=== PATIENT | male | born 1970 | race Caucasian/White ===

== ENCOUNTER 2016-04-16 12:12 | Outpatient (CLI) ==
[2015-10-18 08:32] VITALS: BMI 28.8
--- NOTE | 2016-04-16 13:08 | DI ---
Exam: Paranasal sinuses three-view History: Sinusitis FINDINGS / IMPRESSION: Paranasal sinuses are completely and symmetrically pneumatized. The orbits are intact. Bony cranium appears normal. Negative exam.
== END 2016-04-16 12:13 | disposition home or self-care (01) ==
LOC: RAD 12:12
PROVIDERS: ATTEND Nurse Practitioner Family
DX: J32.9 Chronic sinusitis, unspecified (principal); R09.81 Nasal congestion

== ENCOUNTER 2016-10-23 14:54 | Emergency (ER) ==
[2016-10-23 14:58] VITALS: BP 124/77; TEMP 97.9; BMI 27.9
--- NOTE | 2016-10-23 15:03 | ED.PDOC ---
General ED Provider: Dr. EMRE MAURICIO Chief Complaint: Tooth Problem Stated Complaint: dental pain Time Seen by Physician: 15:01 Mode of Arrival: Walk-In Information Source: Patient Exam Limitations: No limitations [facility] Nursing and Triage Documentation Reviewed and Agree: Yes (seen with thelma at all times ) EENT Complaint Exam - Dental/Oral Complaint/Exam Mechanism of Injury: No known trauma Symptoms Are: Still present Timing: Intermittent Initial Severity: Moderate Current Severity: Moderate Character: Reports: Aching Aggravating: Reports: Heat, Cold, Chewing Alleviating: Reports: Heat, Cold. Denies: OTC Meds Associated Signs and Symptoms: Denies: Swelling, Discharge, Fever, Foul odor, Foul taste in mouth Related History: Reports: Similar episode Dental/Oral Surgical History: Reports: None Tooth Findings: Present: Gross caries Cervical Lymphadenopathy Present: No Facial Swelling Present: No Bleeding Present: No Oropharynx Findings: Absent: Clots, Active bleeding Septal Hematoma: No Foreign Body Present: No Dysphagia Present: No Drooling Present: No Asymmetrical Tonsillar Swelling Present: No Uvula Midline: Yes Emilee-tonsillar Fluctuence: No Trismus Present: No Palatal Petechiae Present: No Scarlatinaform Rash Present: No Teeth Picture: 1 - decay 2 - decay Differential Diagnoses: Dental Caries Review of Systems - Review Of Systems Constitutional: Reports: No symptoms Eyes: Reports: No symptoms Ears, Nose, Mouth, Throat: Reports: No symptoms Respiratory: Reports: No symptoms Cardiac: Reports: No symptoms GI: Reports: No symptoms : Reports: No symptoms Musculoskeletal: Reports: No symptoms Skin: Reports: No symptoms Neurological: Reports: No symptoms Endocrine: Reports: No symptoms Hematologic/Lymphatic: Reports: No symptoms All Other Systems: Reviewed and Negative Past Medical History - Past Medical History Previously Healthy: Yes Endocrine: Reports: Hypothyroid, Dyslipidemia Cardiovascular: Reports: Hypertension Respiratory: Reports: Asthma Hematological: Reports: None Gastrointestinal: Reports: GERD Genitourinary: Reports: Kidney stones Neuro/Psych: Reports: None Musculoskeletal: Reports: Other Cancer: Reports: None Other Pertinent Past Medical History: 2 ABSCESSES AND HAD A DRAIN FOR A WEEK ON LOWER RIGHT JAW - Surgical History General Surgical History: Reports: Orthopedic (carpal tunnel), Unknown - Family History Family History: Reports: Unknown - Social History Smoking Status: Former smoker Hx Substance Use: No Alcohol Screening: Occasionally Physical Exam - Physical Exam Appearance: Well-appearing, No pain distress, Well-nourished Eyes: JOSE, EOMI, Conjunctiva clear ENT: Ears normal, Nose normal, Oropharynx normal Respiratory: Airway patent, Breath sounds clear, Breath sounds equal, Respirations nonlabored Cardiovascular: RRR, Pulses normal, No rub, No murmur GI/: Soft, Nontender, No masses, Bowel sounds normal, No Organomegaly Musculoskeletal: Normal strength, ROM intact, No edema, No calf tenderness Skin: Warm, Dry, Normal color Neurological: Sensation intact, Motor intact, Reflexes intact, Cranial nerves intact, Alert, Oriented Psychiatric: Affect appropriate, Mood appropriate Critical Care Note - Critical Care Note Total Time (mins): 0 Course - Course Vital Signs: Temp Pulse Resp BP Pulse Ox 10/23/16 14:54 97.9 F 117 H 16 124/77 98 Departure - Departure Time of Disposition: 15:02 Disposition: HOME SELF-CARE Discharge Problem: Toothache Instructions: Toothache (ED) Condition: Good Pt referred to PMD for follow-up: Yes Additional Instructions: Please fPlease call your Family Physician as soon as possible to schedule a follow-up appointment. Allergies/Adverse Reactions: Allergies No Known Allergies Allergy (Uncoded 10/23/16 14:58) Home Medications: Ambulatory Orders Cyclobenzaprine HCl [Flexeril] 10 mg PO TID 10/22/12 Lisinopril/Hydrochlorothiazide [Lisinopril-Hctz 10-12.5 Mg Tab] 1 each PO DAILY 11/25/13 Amlodipine Besylate [Norvasc] 5 mg PO DAILY 08/22/14 Sennosides [Senokot] 8.6 mg PO BID 08/22/14 Simvastatin [Zocor] 10 mg PO BEDTIME 08/22/14 Hydrocodone/Acetaminophen [Lortab 10-325 mg Tablet] 1 each PO QID PRN 10/18/15 Ipratropium/Albuterol Sulfate [Combivent Respimat Inhal Mcdaniel] 2 sprays IH BID PRN #1 aer.w.adap 10/18/15 Sulfamethoxazole/Trimethoprim [Bactrim Ds 800/160 mg] 1 tab PO Q12HR #14 tablet 10/18/15 Sennosides/Docusate Sodium [Emilee-Colace Tablet] 1 each PO PRN 10/31/15
== END 2016-10-23 15:08 | disposition home or self-care (01) ==
LOC: ED 14:54
DX: K08.89 Other specified disorders of teeth and supporting structures (principal); K02.7 Dental root caries
CPT/HCPCS: 99282

== ENCOUNTER 2016-11-07 12:32 | Outpatient (CLI) ==
--- NOTE | 2016-11-07 13:08 | US ---
EXAM: Ultrasound groin right. HISTORY: Right groin pain for 6 months. FINDINGS / IMPRESSION: Oh-scale ultrasound and color Doppler were performed in the region of inte rest described as the right groin. There were several oval shaped hypoechoic solid masses identified, all measuring less than 1 cm shor t axis. These are consistent with inguinal lymph nodes and have a benign characteristics. No disti nct regional abnormalities were identified sonographically. If concern is persistent, consider foll ow-up imaging in the region which could include enhanced CT.
== END 2016-11-07 12:33 | disposition home or self-care (01) ==
LOC: RAD 12:32
PROVIDERS: ATTEND Nurse Practitioner Family
DX: R10.31 Right lower quadrant pain (principal)
CPT/HCPCS: 76882

== ENCOUNTER 2018-04-19 06:07 | Emergency (ER) ==
[2018-04-19 06:11] VITALS: BP 131/89; TEMP 98; BMI 3905.5
[2018-04-19] MEDS ORDERED: MORPHINE 2 MG/ML SYRINGE IM STA (06:20)
[2018-04-19] MEDS ORDERED: PHENERGAN 25 MG/ML VIAL IM STA (06:21)
--- NOTE | 2018-04-19 06:43 | ED.PDOC ---
General ED Provider: Dr. INES CORTEZ-ER Chief Complaint: Shoulder Pain/Injury Stated Complaint: i was working on a jeep--i lifted the axle and now i cant move my shoulder without it hurting Time Seen by Physician: 06:10 Mode of Arrival: Walk-In Information Source: Patient Exam Limitations: No limitations Primary Care Provider: JESUS HERNANDEZ Nursing and Triage Documentation Reviewed and Agree: Yes Does patient meet sepsis criteria?: No System Inflammatory Response Syndrome: Not Applicable Sepsis Protocol: For patient's 13 years and over: Temp is 96.8 and below OR 101 and greater Pulse >90 BPM Resp >20/minute Acutely Altered Mental Status Are patient's symptoms suggestive of a new infection, such as: -Pneumonia -Skin, Soft Tissue -Endocarditis -UTI -Bone, Joint Infection -Implantable Device -Acute Abdominal Infection -Wound Infection -Meningitis -Blood Stream Catheter Infection -Unknown Musculoskeletal Complaint Exam - Shoulder Pain Complaint/Exam Mechanism of Injury: Reports: No known trauma Onset/Duration: 24 hrs Symptoms Are: Still present Timing: Constant Initial Severity: Mild Current Severity: Moderate Location: Reports: Discrete Character: Reports: Dull, Aching, Spasmodic, Stiffness Alleviating: Reports: None Aggravating: Reports: Movement, Lifting, Flexion, Extension, Internal rotation, External rotation, Abduction Associated Signs and Symptoms: Denies: Swelling, Redness, Bruising, Fever, Weakness, Numbness, Tingling Non-Orthopedic Risk Factors: Reports: None Tenderness: Present: Proximal humerus, Rotator cuff muscles Limited Range of Motion: Present: Abduction, Adduction, Flexion, Extension, Internal rotation, Rotator cuff muscles Differential Diagnoses: Rotator Cuff Injury, Sprain, Strain, Tendonitis Review of Systems - Review Of Systems Constitutional: Reports: No symptoms Eyes: Reports: No symptoms Ears, Nose, Mouth, Throat: Reports: No symptoms Respiratory: Reports: No symptoms Cardiac: Reports: No symptoms GI: Reports: No symptoms : Reports: No symptoms Musculoskeletal: Reports: Joint pain, Muscle pain Skin: Reports: No symptoms Neurological: Reports: No symptoms Endocrine: Reports: No symptoms Hematologic/Lymphatic: Reports: No symptoms All Other Systems: Reviewed and Negative Past Medical History - Past Medical History Previously Healthy: Yes Endocrine: Reports: Hypothyroid, Dyslipidemia Cardiovascular: Reports: Hypertension Respiratory: Reports: Asthma Hematological: Reports: None Gastrointestinal: Reports: GERD Genitourinary: Reports: Kidney stones Neuro/Psych: Reports: None Musculoskeletal: Reports: Other Cancer: Reports: None Other Pertinent Past Medical History: 2 ABSCESSES AND HAD A DRAIN FOR A WEEK ON LOWER RIGHT JAW - Surgical History General Surgical History: Reports: Orthopedic (carpal tunnel), Unknown - Family History Family History: Reports: Unknown - Social History Smoking Status: Former smoker Hx Substance Use: No Alcohol Screening: None - Immunizations Tetanus Shot up to Date: Yes Physical Exam - Physical Exam Appearance: Well-appearing, No pain distress, Well-nourished Pain Distress: Moderate Eyes: JOSE, EOMI, Conjunctiva clear ENT: Ears normal, Nose normal, Oropharynx normal Neck: Supple Respiratory: Airway patent, Breath sounds clear, Breath sounds equal, Respirations nonlabored Cardiovascular: RRR, Pulses normal, No rub, No murmur GI/: Soft, Nontender, No masses, Bowel sounds normal, No Organomegaly Musculoskeletal: Limited ROM Skin: Warm, Dry, Normal color Neurological: Sensation intact, Motor intact, Reflexes intact, Cranial nerves intact, Alert, Oriented Psychiatric: Affect appropriate, Mood appropriate Interpretation - Radiology Interpretation Radiology Interpretation By: Radiologist Radiology Results: Negative Exam Interpreted: CT Scan Re-Evaluation - Re-Evaluation Time of Re-Evaluation: 06:55 Status: Improved Vital Signs Stable: Yes Pain Level: 1 Appearance: NAD Lungs: Clear Skin: Warm and Dry Neuro: Alert and Oriented X3 CV: RRR Critical Care Note - Critical Care Note Total Time (mins): 0 Course - Course Orders, Labs, Meds: Orders Category Date Time Status Splint [ED SPLINT APPLICATION] .ONCE EMERGENCY 04/19/18 06:52 Active Hydromorphone HCl [Dilaudid 1 mg/ml Syringe] MEDS 04/19/18 06:53 Stat 1 mg IM ONCE STA Morphine Sulfate [Morphine 2 mg/ml Syringe] MEDS 04/19/18 06:20 Discontinued 4 mg IM ONCE STA Promethazine HCl [Phenergan 25 mg/ml Vial] MEDS 04/19/18 06:21 Discontinued 25 mg IM ONCE STA CT SHOULDER RIGHT W/O CONTRAST Stat RADS 04/19/18 06:21 Completed Medications Generic Name Dose Route Start Last Admin Trade Name Freq PRN Reason Stop Dose Admin Hydromorphone HCl 1 mg 04/19/18 06:53 Dilaudid 1 Mg/Ml Syringe IM 04/19/18 06:54 ONCE STA Discontinued Medications Generic Name Dose Route Start Last Admin Trade Name Steven PRN Reason Stop Dose Admin Morphine Sulfate 4 mg 04/19/18 06:20 04/19/18 06:33 Morphine 2 Mg/Ml Syringe IM 04/19/18 06:21 4 mg ONCE STA Administration Promethazine HCl 25 mg 04/19/18 06:21 04/19/18 06:32 Phenergan 25 Mg/Ml Vial IM 04/19/18 06:22 25 mg ONCE STA Administration Vital Signs: Temp Pulse Resp BP Pulse Ox 04/19/18 06:08 98 F 91 H 20 131/89 99 Departure - Departure Time of Disposition: 06:55 Disposition: HOME SELF-CARE Discharge Problem: Injury of shoulder region Instructions: Rotator Cuff Injury (ED) Condition: Good Pt referred to PMD for follow-up: Yes IPMP verified?: No Additional Instructions: stay in sling---norco 7.5mg q 4hrs prn pain #12---see your pcp---consider mri of the shoulder vs ortho referral Allergies/Adverse Reactions: Allergies No Known Allergies Allergy (Uncoded 04/19/18 06:10) Home Medications: Ambulatory Orders Cyclobenzaprine HCl [Flexeril] 10 mg PO TID 10/22/12 Lisinopril/Hydrochlorothiazide [Lisinopril-Hctz 10-12.5 Mg Tab] 1 each PO DAILY 11/25/13 Sennosides [Senokot] 8.6 mg PO BID 08/22/14 Simvastatin [Zocor] 10 mg PO BEDTIME 08/22/14 Sennosides/Docusate Sodium [Emilee-Colace Tablet] 1 each PO PRN PRN 10/31/15 Amoxicillin 500 mg PO Q8HR #21 tablet 10/23/16 Hydrocodone/Acetaminophen [[place]ouck 10-325 Tablet] 1 each PO Q8HR #12 tablet Disposition Discussed With: Patient
--- NOTE | 2018-04-19 06:51 | CT ---
EXAM: CT right shoulder without intravenous contrast 04/19/2018. Sagittal and coronal reformatted i mages obtained HISTORY: Injury COMPARISON: 01/20/2015 FINDINGS: The glenohumeral and acromioclavicular joints align normally. There is no evidence of acu te fracture. There is no evidence of dislocation. The adjacent visualized ribs and scapula also blake ear intact. No gross soft tissue injury within the limitation of a noncontrast CT. The current study is limited in evaluation of internal derangement. MRI may be of benefit in further characterization. There is chronic osteoarthritic degenerative change. Joint space narrowing of the glenohumeral joint . Prominent acromioclavicular osteophyte formation. There is both superior and inferior osteophyte formation at the level of the acromioclavicular joint. IMPRESSION: 1. No acute fracture or dislocation. 2. Chronic osteoarthritic degenerative change. 3. Limited characterization of soft tissue injury/internal derangement due to noncontrast CT techniq ue. MRI may be of benefit in further characterization.
[2018-04-19] MEDS ORDERED: DILAUDID 1 MG/ML SYRINGE IM STA (06:53)
== END 2018-04-19 07:22 | disposition home or self-care (01) ==
LOC: ED 06:07
DX: S49.91XA Unspecified injury of right shoulder and upper arm, initial encounter (principal); X50.9XXA Other and unspecified overexertion or strenuous movements or postures, initial encounter
CPT/HCPCS: 96372; 99283

== ENCOUNTER 2018-11-05 20:46 | Observation (INO) ==
[2018-11-05] MEDS ORDERED: TORADOL IVP STA (21:34)
--- NOTE | 2018-11-05 23:51 | CT ---
Exam: CT angiography of the chest History: Right pleuritic chest pain Technique: [address] of the chest utilizing CT angiography protocol. Multiplanar and max imum intensity projection reformations were performed. FINDINGS: Technically adequate for evaluation of pulmonary arteries and aorta. There are no pulmona ry artery filling defects. The lung windows show no pulmonary parenchymal abnormality. The aorta is normal. Atherosclerotic calcification of the coronary arteries. No pathologic lymph node enlargeme nt or abundance of mediastinum. No acute findings of the chest wall soft tissues or bony thorax. No acute findings of the upper abdomen. Impression: 1. No evidence of pulmonary artery thrombus 2. No acute findings of the chest
--- NOTE | 2018-11-06 00:20 | ED.PDOC ---
General ED Provider: Dr. INES CORTEZ-ER Chief Complaint: Chest Pain Stated Complaint: michael been hurting on the right side of my chest for 2 weeks-- its worse with any exertion--he does have risk factors for cad Time Seen by Physician: 20:50 Mode of Arrival: Walk-In Information Source: Patient Exam Limitations: No limitations Primary Care Provider: AICHA [facility] Nursing and Triage Documentation Reviewed and Agree: Yes Does patient meet sepsis criteria?: No System Inflammatory Response Syndrome: Not Applicable Sepsis Protocol: For patient's 13 years and over: Temp is 96.8 and below OR 101 and greater Pulse >90 BPM Resp >20/minute Acutely Altered Mental Status Are patient's symptoms suggestive of a new infection, such as: -Pneumonia -Skin, Soft Tissue -Endocarditis -UTI -Bone, Joint Infection -Implantable Device -Acute Abdominal Infection -Wound Infection -Meningitis -Blood Stream Catheter Infection -Unknown Cardiovascular Complaint Exam - Chest Pain Complaint/Exam Onset: Gradual Duration: 2 weeks Symptoms Are: Still present Initial Severity: Mild Current Severity: Mild Location: Reports: Diffuse Character: Reports: Dull, Aching, Pressure Aggravating: Reports: Exertion, Movement, Deep breaths AMI/ACS Risk Factors: Reports: Hypertension, Smoking TAD Risk Factors: Reports: Hypertension Pulmonary Embolism Risk Factors: Reports: None Prior Care for this Complaint: No Recent Stress Test: No Recent Echo/LV Function: No JVD Present: No Subcutaneous Emphysema Present: No Diminshed Breath Sounds: No Reproducible Chest Wall Pain: No Bilateral Pulses Present: Yes Unequal Pulses Noted: No If Risk Factors for PE Consider: Chest CT with contrast If Risk Factors for TAD Consider: Chest CT with contrast Tapeman Consulted: No Differential Diagnoses: ACS, Stable Angina, Chest Wall Pain, Pulmonary Embolism Quality Indicators For Acute NH or Cardiac Chest Pain: EKG in 10min. Quality Indicator For Non-Traumatic Chest Pain/Syncope: EKG Performed Review of Systems - Review Of Systems Constitutional: Reports: No symptoms Eyes: Reports: No symptoms Ears, Nose, Mouth, Throat: Reports: No symptoms Respiratory: Reports: No symptoms Cardiac: Reports: Chest pain GI: Reports: No symptoms : Reports: No symptoms Musculoskeletal: Reports: No symptoms Skin: Reports: No symptoms Neurological: Reports: No symptoms Endocrine: Reports: No symptoms Hematologic/Lymphatic: Reports: No symptoms All Other Systems: Reviewed and Negative Past Medical History - Past Medical History Previously Healthy: Yes Endocrine: Reports: Hypothyroid, Dyslipidemia Cardiovascular: Reports: Hypertension Respiratory: Reports: Asthma Hematological: Reports: None Gastrointestinal: Reports: GERD Genitourinary: Reports: Kidney stones Neuro/Psych: Reports: None Musculoskeletal: Reports: Other Cancer: Reports: None Other Pertinent Past Medical History: 2 ABSCESSES AND HAD A DRAIN FOR A WEEK ON LOWER RIGHT JAW - Surgical History General Surgical History: Reports: Orthopedic (carpal tunnel), Unknown - Family History Family History: Reports: Unknown - Social History Smoking Status: Former smoker Hx Substance Use: No (medical marijuana) Alcohol Screening: Occasionally - Immunizations Tetanus Shot up to Date: No Physical Exam - Physical Exam Appearance: Well-appearing, No pain distress, Well-nourished Pain Distress: Mild Eyes: JOSE, EOMI, Conjunctiva clear ENT: Ears normal, Nose normal, Oropharynx normal Neck: Supple Respiratory: Airway patent, Breath sounds clear, Breath sounds equal, Respirations nonlabored Cardiovascular: RRR, Pulses normal, No rub, No murmur GI/: Soft, Nontender, No masses, Bowel sounds normal, No Organomegaly Musculoskeletal: Normal strength, ROM intact, No edema, No calf tenderness Skin: Warm, Dry, Normal color Neurological: Sensation intact, Motor intact, Reflexes intact, Cranial nerves intact, Alert, Oriented Psychiatric: Affect appropriate, Mood appropriate Interpretation - Radiology Interpretation Radiology Interpretation By: Radiologist Radiology Results: Negative Exam Interpreted: CT Scan - EKG Interpretation Time of EKG #1: 00:22 Rate: Normal Rhythm: Sinus Ectopy: None [place]: NL ST Segment: Normal Interpretation: nsr Physician Notification - Case Discussed Physician Notified: MT doctor gave permission for admission Time of Notification: 01:01 Critical Care Note - Critical Care Note Total Time (mins): 30 Course - Course Hematology/Chemistry: 11/05/18 21:15 11/05/18 21:15 Orders, Labs, Meds: Lab Review 11/05/18 11/05/18 21:15 21:15 WBC 7.08 RBC 4.31 L Hgb 13.3 L Hct 39.1 L MCV 90.7 MCH 30.9 MCHC 34.0 RDW Coeff of Mir 13.3 Plt Count 197 Immature Gran % (Auto) 0.3 Neut % (Auto) 62.6 Lymph % (Auto) 24.7 [place] % (Auto) 8.2 Eos % (Auto) 3.8 Baso % (Auto) 0.4 Immature Gran # (Auto) 0.0 Neut # (Auto) 4.4 Lymph # (Auto) 1.8 [place] # (Auto) 0.6 Eos # (Auto) 0.3 Baso # (Auto) 0.0 ESR 12 Sodium 142.0 Potassium 3.31 L Chloride 108.5 H Carbon Dioxide 24.5 Anion Gap 12.31 BUN 11.1 Creatinine 1.04 Estimated GFR (MDRD) 76.00 BUN/Creatinine Ratio 10.67 Glucose 96.4 Calcium 9.73 Total Bilirubin 0.40 AST 27.0 ALT 19.8 Alkaline Phosphatase 64.2 Total Creatine Kinase 123.3 CK-MB (CK-2) 1.160 CK-MB (CK-2) % 0.9400 Troponin I < 0.012 Total Protein 7.53 Albumin 4.37 Globulin 3.16 Albumin/Globulin Ratio 1.38 Amylase 64.4 Lipase 85.0 Orders Category Date Time Status EKG-(ED ONLY) Stat CARDIO 11/05/18 21:02 Completed NPO REMINDER: IMAGING ONCE CARE 11/05/18 21:09 Completed ED PALLIATIVE CARE PHYSICIAN APPLIED .ONCE EMERGENCY 11/05/18 21:08 Active ED IV/MEDIPORT/POWERPORT .ONCE EMERGENCY 11/05/18 21:08 Active AMYLASE Stat LAB 11/05/18 21:15 Completed CBC W/ AUTO DIFF Stat LAB 11/05/18 21:15 Completed COMPREHENSIVE METABOLIC PANEL Stat LAB 11/05/18 21:15 Completed CREATINE KINASE Stat LAB 11/05/18 21:15 Completed ESR Stat LAB 11/05/18 21:15 Completed LIPASE Stat LAB 11/05/18 21:15 Completed TROPONIN I Stat LAB 11/05/18 21:15 Completed 0.9 % Sodium Chloride [Saline Flush] MEDS 11/05/18 21:08 Active 1 syr IVF PRN PRN Ketorolac Tromethamine [Toradol] MEDS 11/05/18 21:34 Discontinued 30 mg IVP ONCE STA CT CHEST PE PROTOCOL Stat RADS 11/05/18 21:09 Completed Medications Generic Name Dose Route Start Last Admin Trade Name Freq PRN Reason Stop Dose Admin Sodium Chloride 1 syr 11/05/18 21:08 11/05/18 21:39 Saline Flush IVF 1 syr PRN PRN Administration To flush IV Discontinued Medications Generic Name Dose Route Start Last Admin Trade Name Freq PRN Reason Stop Dose Admin Ketorolac Tromethamine 30 mg 11/05/18 21:34 11/05/18 21:39 Toradol IVP 11/05/18 21:35 30 mg ONCE STA Administration Vital Signs: Temp Pulse Resp BP Pulse Ox 11/05/18 23:35 75 18 131/81 99 11/05/18 22:50 71 20 118/74 98 11/05/18 20:47 97.6 F 90 20 147/90 H 100 MAYRA Risk Score MAYRA Risk Score: Risk Score Odds of by 30D 0 0.1 (0.1-0.2) 1 0.3 (0.2-0.3) 2 0.4 (0.3-0.5) 3 0.7 (0.6-0.9) 4 1.2 (1.0-1.5) 5 2.2 (1.9-2.6) 6 3.0 (2.5-3.6) 7 4.8 (3.8-6.1) Departure - Departure Time of Disposition: 00:23 Disposition: PLACED OBSERVATION Discharge Problem: Chest pain Instructions: Chest Pain (ED) Condition: Good Pt referred to PMD for follow-up: Yes IPMP verified?: No Allergies/Adverse Reactions: Allergies No Known Allergies Allergy (Uncoded 11/05/18 20:55) Home Medications: Ambulatory Orders Cyclobenzaprine HCl [Flexeril] 10 mg PO TID 10/22/12 Lisinopril/Hydrochlorothiazide [Lisinopril-Hctz 10-12.5 Mg Tab] 1 each PO DAILY 11/25/13 Simvastatin [Zocor] 10 mg PO BEDTIME 08/22/14 Sennosides/Docusate Sodium [Emilee-Colace Tablet] 1 each PO PRN PRN 10/31/15 Allopurinol 200 mg PO BEDTIME 11/05/18 Etodolac 300 mg PO BID 11/05/18 Transfer Form Completed: Yes Disposition Discussed With: Patient
[2018-11-06] MEDS ORDERED: TYLENOL PO PRN (01:03)
[2018-11-06] MEDS ORDERED: NORCO 5-325 PO PRN (01:04)
[2018-11-06 01:54] VITALS: BMI 28.4
[2018-11-06] MEDS ORDERED: DECADRON 4 MG/ML SDV IVP STA ×2 (08:15)
[2018-11-06] MEDS ORDERED: TORADOL IVP STA (08:15)
[2018-11-06] MEDS ORDERED: FLEXERIL PO SCH (09:00)
[2018-11-06] MEDS ORDERED: LOVENOX SUBCUT SCH (09:00)
[2018-11-06] MEDS ORDERED: ETODOLAC 300 MG PO SCH (09:00)
--- NOTE | 2018-11-06 11:12 | PCM.CONS ---
CONSULTING PROVIDER: Dr. HOLDEN DE LA GARZA ATTENDING PROVIDER: Dr. INES CORTEZ DATE OF SERVICE: 11/06/18 SUBJECTIVE: This 48 year old WHITE/ M was hospitalized 11/06/18. The patient is seen in consultation for right-sided pleuriitc type pain. The patient doesn't have any exertional type chest discomfort. No symptoms of CHF. The patient's mother had a pacemaker. The patient is a nonsmoker. He is on medical marijuana. The patient has been on a statin for 3 years and is followed by the [facility]. REVIEW OF SYSTEMS: CONSTITUTIONAL: No night sweats. No fatigue, malaise, lethargy. No fever or chills. HEENT: Eyes: No visual changes. No eye pain. No eye discharge. ENT: No runny nose. No epistaxis. No sinus pain. No odynophagia. No congestion. RESPIRATORY: No cough, no congestion. No hemoptysis. No shortness of breath. CARDIOVASCULAR: Positive for chest pain. No angina symptoms. No CHF symptoms. No palpitations. No orthopnea. GASTROINTESTINAL: No abdominal pain. No nausea or vomiting. No diarrhea or constipation. No hematemesis. No hematochezia. GENITOURINARY: No urgency. No frequency. No dysuria. No hematuria. No obstructive symptoms. No discharge. No pain. No significant abnormal bleeding. MUSCULOSKELETAL: No musculoskeletal pain; no joint swelling. NEUROLOGICAL: Awake, alert, oriented to time, place and person. No headache. No neck pain. No syncope. No seizures. No dizziness. PSYCHIATRIC: Not anxious. No depression. No suicidal thoughts. No homicidal thoughts. SKIN: No rash. No lesions. No wounds. ENDOCRINE: No unexplained weight loss. No weight gain. HEMATOLOGIC/LYMPHATIC: No anemia. No purpura. No petechiae. No prolonged or excessive bleeding. No palpable lymph nodes. PHYSICAL EXAMINATION: GENERAL: The patient is awake, alert and oriented, lying/sitting in bed in no distress. VITAL SIGNS: Temperature 97.8 F, Pulse 64, Respiratory Rate 18, BP 112/60, Pulse Ox 99% HEENT: Head normocephalic, atraumatic. Eyes: Extraocular muscles are intact. Pupils are equal, round and reactive to light and accommodation. Ears: No lesions. Nose appeared normal. Throat: No exudate or erythema. NECK: Supple. No JVD, no carotid bruit. No lymphadenopathy or thyromegaly. LUNGS: Clear to auscultation. Percussion note normal. Chest symmetrical. HEART: S1, S2, no S3. No murmurs. No cyanosis or clubbing. No ascites. Pulses: Dorsalis pedis and posterior tibial pulses +2 both sides. ABDOMEN: Soft. Non-tender. Bowel sounds active. No CVA tenderness. No mass felt. EXTREMITIES: No edema. Full range of motion of all extremities, equal. NEUROLOGIC: No focal deficit. Cranial nerves II through XII are grossly intact. No headache, no double vision or headache. SKIN: Warm and dry. Intact. Turgor-normal. LYMPHATIC: No palpable lymph nodes/no lymphedema. MUSCULOSKELETAL: Normal joints with no swelling. Muscle tone is normal. LAB REVIEW: 11/05/18 21:15 11/05/18 21:15 11/06/18 07:15: Total Creatine Kinase 97.1, Troponin I < 0.012 11/05/18 21:15: Sodium 142.0, Potassium 3.31 L, Chloride 108.5 H, Carbon Dioxide 24.5, Anion Gap 12.31, BUN 11.1, Creatinine 1.04, Estimated GFR (MDRD) 76.00, BUN/Creatinine Ratio 10.67, Glucose 96.4, Calcium 9.73, Total Bilirubin 0.40, AST 27.0, ALT 19.8, Alkaline Phosphatase 64.2, Total Creatine Kinase 123.3 , CK-MB (CK-2) 1.160, CK-MB (CK-2) % 0.9400, Troponin I < 0.012, Total Protein 7.53, Albumin 4.37, Globulin 3.16, Albumin/Globulin Ratio 1.38, Amylase 64.4, Lipase 85.0 11/05/18 21:15: WBC 7.08, RBC 4.31 L, Hgb 13.3 L, Hct 39.1 L, MCV 90.7, MCH 30.9 , MCHC 34.0, RDW Coeff of Mir 13.3, Plt Count 197, Immature Gran % (Auto) 0.3, Neut % (Auto) 62.6, Lymph % (Auto) 24.7, [place] % (Auto) 8.2, Eos % (Auto) 3.8, Baso % (Auto) 0.4, Immature Gran # (Auto) 0.0, Neut # (Auto) 4.4, Lymph # (Auto ) 1.8, [place] # (Auto) 0.6, Eos # (Auto) 0.3, Baso # (Auto) 0.0, ESR 12 ASSESSMENT: 1. Chest pain seems to be pleuritic in type, noncardiac. BMI 28. 2. History of dyslipidemia. 3. Family history questionable for heart disease. RECOMMENDATIONS/PLAN: 1. Echocardiogram to evaluate LV function. 2. Stress echo. 3. Lipid profile. 4. A1C. 5. TSH. 6. Toradol 30 mg IV. Thanks for referral, will follow. Plan and coordination of the patient's care discussed in the presence of Cto and Nurse. CONDITION: Stable. SCRIBED BY: NABIL BEARD [employer] Manager scribed while in presence of service performed by Dr. HOLDEN DE LA GARZA on 11/06/18 ([id number])
--- NOTE | 2018-11-06 12:13 | STRESSECHO ---
Date of Test: 11/06/18 Ordering Physician: DR. INES CORTEZ Occupation: DISABLED Reason for Exam: CHEST PAIN, SOB, HTN Smoking History: MEDICAL MARIJUANA/ QUIT CIGARETTES '90 Height: 72" Weight: 209 LBS Current Medications: ZOCOR, LISINOPRIL, FLEXERIL, ALLOPURINOL, ETODOLAC Resting EKG: SINUS RHYTHM/NO ACUTE CHANGES--ISOLATED PVC'S Target Heart Rate: 144/170 S-T SEGMENT STAGE MPH/GRADE HEART RATE BPM BLOOD PRESSURE MMHG RHYTHM +/- ELEVATION DEPRESSION SYMPTOMS AT REST 68 BPM 148/98 MMHG SR X NONE 1 1.7/10% 2 2.5/12% 3 3.4/14% 4 4.2/16% 5 5.0/18% Immediately After 115 BPM 148/88 MMHG SR X BACK PAIN RT SCIATICA Minutes Post Exercise 1:00 90 BPM SR X NO BACK PAIN Minutes Post Exercise 5:00 70 BPM 146/80 MMHG SR X NONE DURATION OF EXERCISE: 2:00 MAXIMUM HEART RATE REACHED: 115 BPM REASON FOR TERMINATION: BACK PAIN (RT) SCIATICA 96% OXYGEN SATURATION WITH EXERCISE METS 4.8 INTERPRETATION: 1. NO EVIDENCE OF ISCHEMIA BY ST-T WAVE CHANGES FROM RESTING HEART RATE 68 BPM TO 115 BPM WITH EXERCISE 2. NO CHEST PAIN OR DISCOMFORT 3. POST EXERCISE VENTRICULAR TRIGEMINY FOR COUPLE OF MINUTES 4. BLOOD PRESSURE RESPONSE: ADEQUATE NORMAL LEFT VENTRICULAR CONTRACTILITY--RESTING AND POST EXERCISE MTDD
[2018-11-06 15:35] VITALS: BP 135/85; TEMP 99
[2018-11-06] MEDS ORDERED: SIMVASTATIN 10 MG PO SCH (21:00)
[2018-11-06] MEDS ORDERED: ZYLOPRIM PO SCH (21:00)
--- NOTE | 2018-11-07 10:40 | ECHO2D ---
Date of Exam: 11/06/18 Ordering Physician: DR. INES CORTEZ--HOSPITALIST Room #: 120 Reason for Echo: CHEST PAIN, SOB, HTN M-Mode Normal Adult Results LV Dimensions Normal Adult Results AoV Opening excursions >1.6 >1.6 LVEDD-base- 3.5-5.8 4.9 Ao root dimensions 2.0-3.7 3.8 LVESD-base- 3.1-4.6 L. Atrium dimensions 1.9-3.8 4.0 Post. Wall thickness 0.8-1.1 1.2 IV septum (thickness) 0.7-1.2 1.3 Post. Wall excursion 0.72-1.3 NORMAL Septal motion NORMAL Systolic motion R. Ventricular cavity 1.5-2.0 NORMAL LVEF 60% 59% Paradoxical septal wall motion NORMAL 2-D : 2-D M Mode Echocardiogram was performed using apical four chamber and left parasternal long and short axis views. Mitral, tricuspid and aortic valves appear to be normal. Contractility of the left ventricle seems to be normal, so is the cavity size. Left atrial cavity size and aortic root appear to be normal. There is no pericardial effusion. There is no thrombus noted in the left ventricular or left aortic cavity. No mitral valve prolapse noted. M-MODE: MV: NORMAL AV: NORMAL TV: NORMAL PV: CHAMBER SIZE: BORDERLINE LEFT ATRIAL CAVITY WALL MOTION: NORMAL PERICARDIUM: NORMAL INTERPRETATION: 1. LEFT VENTRICULAR HYPERTROPHY WITH BORDERLINE LEFT ATRIAL CAVITY ENLARGEMENT 2. NORMAL LEFT VENTRICULAR CONTRACTILITY 3. NORMAL VALVES MTDD
--- NOTE | 2018-11-07 10:45 | ECHOSTRESS ---
Date of Exam: 11/06/18 Ordering Physician: DR. INES CORTEZ--HOSPITALIST Reason for Echo: CHEST PAIN, SOB, HYPERTENSION, STRESS TEST--NO ISCHEMIA M-Mode Normal Adult Results LV Dimensions Normal Adult Results AoV Opening excursions >1.6 LVEDD-base- 3.5-5.8 Ao root dimensions 2.0-3.7 LVESD-base- 3.1-4.6 L. Atrium dimensions 1.9-3.8 Post. Wall thickness 0.8-1.1 IV septum (thickness) 0.7-1.2 Post. Wall excursion 0.72-1.3 Septal motion Systolic motion R. Ventricular cavity 1.5-2.0 LVEF 60% Paradoxical septal wall motion 2-D: NORMAL LEFT VENTRICULAR CONTRACTILITY--RESTING AND POST EXERCISE M-MODE: MV: AV: TV: PV: CHAMBER SIZE: WALL MOTION: NORMAL LEFT VENTRICULAR CONTRACTILITY--RESTING AND POST EXERCISE PERICARDIUM: INTERPRETATION: 1. NORMAL LEFT VENTRICULAR CONTRACTILITY--RESTING AND POST EXERCISE MTDD
--- NOTE | 2018-11-11 09:47 | CONS ---
DATE OF SERVICE: 11/06/18 REASON FOR CONSULTATION: Chest pain SUBJECTIVE: 48 year old white male was hospitalized with chest pain which was right sides more like a pleuritic type of pain increased with inspiration. The patient was given Toradol and Decadron. Within an hour the patient's pain has been relieved. The patient has been constant for a couple of days. So far the patient 's EKG and cardiac markers are negative. REVIEW OF SYSTEMS: CONSTITUTIONAL: No night sweats. No fatigue, malaise, lethargy. No fever or chills. HEENT: Eyes: No visual changes. No eye pain. No eye discharge. ENT: No runny nose. No epistaxis. No sinus pain. No sore throat. No odynophagia. No ear pain. No congestion. RESPIRATORY: No cough, no congestion. No hemoptysis. CARDIOVASCULAR: No angina symptoms. No CHF symptoms. Pleuritic type of chest pain. chest pain increased with exertion. No palpitations. No shortness of breath. GASTROINTESTINAL: No abdominal pain. No nausea or vomiting. No diarrhea or constipation. No hematemesis. No hematochezia. GENITOURINARY: No urgency. No frequency. No dysuria. No hematuria. No obstructive symptoms. No discharge. No pain. No significant abnormal bleeding. MUSCULOSKELETAL: No musculoskeletal pain. No joint swelling. No arthritis. NEUROLOGICAL: No headache. No neck pain. No syncope. No seizures. No dizziness. PSYCHIATRIC: Not anxious. No depression. No suicidal thoughts. No homicidal thoughts. SKIN: No rash. No lesions. No wounds. ENDOCRINE: No unexplained weight loss. No weight gain. HEMATOLOGIC/LYMPHATIC: No anemia. No purpura. No petechiae. No prolonged or excessive bleeding. No palpable lymph nodes. SOCIAL HISTORY: The patient is . Former smoker with occasional alcohol use. MEDICATIONS: Medical marijuana Emilee-Colace Zocor Lisinopril/HCTZ Etodolac Flexeril Allopurinol PAST MEDICAL/SURGICAL HISTORY/ALLERGIES: Hypothyroid Dyslipidemia Hypertension Asthma GERD Kidney stone Carpal Terminal 2 abscess with drain lower right jaw Back surgery, 2018 (reinaldo, spacers and screws) Chronic back pain Pacemaker. PHYSICAL EXAMINATION: VITAL SIGNS: Temperature 97.8. pulse 64 per minute, respiratory rate 18, blood pressure 112/60 and pulse ox 99% HEENT: Head normocephalic, atraumatic. Eyes: Extraocular muscles are intact. Pupils are equal, round and reactive to light and accommodation. Ears: No lesions. Nose appeared normal. Throat: No exudate or erythema. NECK: Supple. No JVP, no carotid bruit. No lymphadenopathy or thyromegaly. LUNGS: Decreased breath sounds but clear to auscultation. Percussion note normal. Chest symmetrical. HEART: S1, S2, no S3. No murmurs. No cyanosis or clubbing. No ascites. Pulses: Dorsalis pedis and posterior tibial pulses +2 bilaterally. ABDOMEN: Soft. Nontender. Bowel sounds active. No CVA tenderness. No mass felt. EXTREMITIES: No edema. Full range of motion of all extremities, equal. NEUROLOGIC: No focal deficit. Cranial nerves II through XII are grossly intact. No headache, no double vision or headache. SKIN: Not dry. Intact. Turgor - normal. LYMPHATIC: No palpable lymph nodes/no lymphedema. MUSCULOSKELETAL: Normal joints with no swelling. Muscle tone is normal. LABS: Hgb 13, hct 39, WBC 7,000 normal differential. The patient's chest pain seems to be noncardiac. The patient underwent echocardiogram which showed borderline LVH. normal LV contract, normal valvular structure, Borderline enlargement of the LA cavity. Stress echo was not conclusive but the patient did not have any ST-T wave change with heart rate of 68 to 115 per minute. After the stress test was terminated at 2 minutes on Yoshi protocol with METS of 0.8 considering the performance on stress test, no chest pain, no ST-T wave change along with atypical chest pain with pleurisy. Negative cardiac markers and EKG. CTA chest- no evidence of pulmonary artery thrombus. No acute findings. Amylase within normal limits (64). Lipase within normal limits (85). EKG normal sinus rhythm. CPK#1 123, #2 97. Troponin <0.012 x2. MB 1.160. MB%0.9400. CONDITION: Stable. ASSESSMENT: 1. Chest pain, very likely the patient's chest pain is noncardiac 2. Hypertension RECOMMENDATIONS: 1. The patient is strongly advised to followup with the primary care physician who is attached to [facility]. 2. Advised to continue his Statin and antihypertensive medication. 3. The patient's lipid profile was reported as normal. [facility]
--- NOTE | 2019-01-21 09:29 | DS ---
PRINCIPAL DIAGNOSIS: 1. CHEST PAIN 2. HYPERTENSION 3. HYPERLIPIDEMIA CLINICAL COURSE: The patient had risk factors for heart disease and because of this he was admitted to my services as hospitalist overnight. Serial EKGs and cardiac enzymes were unrevealing. He was kindly seen by Dr. Moscoso where echo and stress echo were unrevealing for ischemia. At this point the patient was thought to be stable for discharge. He will be discharged home and to followup with PCP in one week. SANAM
--- NOTE | 2019-01-22 09:55 | HP ---
DISCUSSION: This is a 48-year-old gentleman who presented to the Emergency Department with chest pain. It was primarily right-sided chest discomfort, worse with exertion. The patient does have risk factors for coronary artery disease. In this context, the patient was seen and admitted for further evaluation of his chest pain. PAST MEDICAL HISTORY: MEDICATIONS: Flexeril Lisinopril Hydrochlorothiazide Zocor Allopurinol Lodine ALLERGIES: NKDA PAST MEDICAL HISTORY: History of hypertension Hyperlipidemia Acute gout Degnerative joint disease PAST SURGICAL HISTORY: History of carpal tunnel surgery SOCIAL HISTORY: He is a previous smoker. Occasionally uses alcohol and does use medical marijuana. FAMILY HISTORY: Reviewed and thought not to be pertinent to discussion. REVIEW OF SYSTEMS: No headaches, visual changes, tinnitus, chest pain, shortness of breath, hemoptysis, abdominal pain, blood in the stool, urinary symptoms or seizures. PHYSICAL EXAMINATION: V/S: Temperature 97.6, pulse 70, respiratory rate 18, BP 120/80. HEENT: Pupils are round. NECK: Supple. CHEST: Clear. CARDIOVASCULAR: Regular rate and rhythm. ABDOMEN: Soft, nontender. EXTREMITIES: Distal extremities without cyanosis or edema. ASSESSMENT: 1. CHEST PAIN IN A 48-YEAR-OLD GENTLEMAN WITH HISTORY OF RISK FACTORS. PLAN: 1. Admission. 2. Serial EKGs and enzymes. 3. Consultation with Dr. Moscoso for stress echo. 4. Please see orders. MTDD
== END 2018-11-06 15:37 | disposition home or self-care (01) ==
LOC: ED 20:46 → MEDSURG B 11-06 01:16
PROVIDERS: ADMIT Family Medicine; ATTEND Family Medicine
DX: E78.5 Hyperlipidemia, unspecified; R07.9 Chest pain, unspecified; I10 Essential (primary) hypertension